=== PATIENT | male | born 1955 | race Caucasian/White ===

== ENCOUNTER 2016-10-25 08:49 | Emergency (ER) | payer MEDICAID ==
[~2016-10-25] VITALS: Ht 182.9 cm; Wt 97.2 kg
[2016-10-25 08:56] VITALS: BP 153/72
[2016-10-25] MEDS ORDERED: KETOROLAC 30 MG/1 ML ONE (09:47)
[2016-10-25] MEDS ORDERED: KETOROLAC 30 MG/1 ML IM ONE (10:00)
== END 2016-10-25 10:54 | disposition home or self-care (01) ==
LOC: ED 10:30
DX: M75.32 Calcific tendinitis of left shoulder (principal); M19.071 Primary osteoarthritis, right ankle and foot; M25.512 Pain in left shoulder
CPT/HCPCS: 73030; 73610; 93005; 96372; 99284; J1885